=== PATIENT | male | born 1970 | race Caucasian/White ===

== ENCOUNTER 2023-11-24 07:32 | Emergency (ER) | payer BC, SELFPAY ==
--- NOTE | ~2023-11-24 | XR_ITS ---
EXAMINATION: XR ankle RT min 3V DATE: 11/24/2023 08:58 INDICATION: Right ankle swelling, pain, and erythema. TECHNIQUE: 4 views of right ankle were obtained. COMPARISON: None. FINDINGS: Bone alignment is normal. No fracture. There is mild midfoot osteoarthritis. There are enth esophytes at the posterior and plantar aspects of calcaneal tuberosity. Ankle soft tissue swelling is noted. IMPRESSION: 1. Mild midfoot osteoarthritis. Reviewed, dictated and finalized at location A.
--- NOTE | ~2023-11-24 | XR_ITS ---
EXAMINATION: XR foot RT min 3V DATE: 11/24/2023 08:58 INDICATION: Right foot swelling and pain. TECHNIQUE: 4 views of right foot were obtained. COMPARISON: None. FINDINGS: Bone alignment is normal. No fracture. There is mild osteoarthritis of first metatarsophala ngeal joint and many of the midfoot and interphalangeal joints. 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 IMPRESSION: 1. Mild polyarticular osteoarthritis. Reviewed, dictated and finalized at location A.
--- NOTE | ~2023-11-24 | XR_ITS ---
EXAMINATION: XR tibia fibula RT 2V DATE: 11/24/2023 08:58 INDICATION: Right lower leg pain and swelling. TECHNIQUE: 2 views of right tibia and fibula on 4 radiographs were obtained. COMPARISON: None. FINDINGS: Bone alignment is normal. No fracture. There is mild midfoot osteoarthritis. No knee joint effusion. IMPRESSION: 1. No fracture. Reviewed, dictated and finalized at location A. IMPRESSION: 1. No fracture.
--- NOTE | ~2023-11-24 | US_ITS ---
EXAMINATION: US venous doppler LE RT DATE: 11/24/2023 08:35 INDICATION: Right lower limb pain and swelling. TECHNIQUE: Grayscale ultrasound images without and with compression and Doppler ultrasound images of the right lower extremity veins were obtained. COMPARISON: None. FINDINGS: The visualized portions of right common femoral vein, profunda (deep) femoral vein, femoral vein, pop liteal vein, peroneal veins, posterior tibial veins, and greater saphenous vein outflow are patent. T here is 2.6 cm reflux in right popliteal vein. IMPRESSION: 1. No deep venous thrombosis. 2. Reflux in right popliteal vein. Reviewed, dictated and finalized at location A.
[2023-11-24 07:36] VITALS: BP 155/91; PULSE 98; RESP 20; TEMP 36.4; O2SAT 97
[2023-11-24 08:00] VITALS: PULSE 97; RESP 12; O2SAT 94
[2023-11-24 08:01] VITALS: BP 140/93; PULSE 92; RESP 18; O2SAT 92
--- NOTE | 2023-11-24 08:10 | ED.EXTPRO ---
HPI - Extremity Problem General Chief complaint: Extremity Problem,Nontraumatic Stated complaint: right calf pain, redness Time Seen by Provider: 11/24/23 07:42 History of Present Illness HPI Narrative: Patient is a 53-year-old male who presents emergency department this morning complaining of right lower extremity swelling, redness and pain. Patient states that he recently had to long flights, 1 approximately 4 hours and another 1 right after rate which was 3 hours and few days ago patient noticed that his right lower extremity was swollen and tender. Patient denies any injuries to his right lower extremity, denies any trauma or falls. Patient states that the swelling he initially noticed on Sunday and for the past 3 days he will try to wait it out to see if it would subside, however it did not. Denies any history of cardiovascular disease, and history of a blood clotting disorders and admits that he does not take any medications on a regular basis. Patient is currently denying any chest pain or shortness of breath, denies any additional symptoms or concerns. Related Data Allergies Allergy/AdvReac Type Severity Reaction Status Date / Time rubella virus live vaccine Allergy Unknown UNKNOWN Verified 11/24/23 07:34 Review of Systems Review of Systems: All systems are reviewed and are negative unless stated otherwise in the HPI. Exam Narrative: General: Alert, awake, afebrile, in no acute distress. Neck: Trachea midline, no JVD, no lymphadenopathy. Cardiovascular: Regular rate and rhythm, no murmurs, rubs or gallops, no peripheral edema. Respiratory: Clear to auscultation bilaterally, no tachypnea, no wheezing, no rhonchi, no rubs, no respiratory distress. Abdomen: Soft, nontender, nondistended, no rebound, no guarding, no peritoneal signs. Musculoskeletal: Swelling to a right foot, ankle, and dist are right leg from the mid calf and downward. Tenderness to palpation along the distal calf and around the right lateral malleoli, mild erythema noted around the lateral malleolus. Skin: No rashes or petechia, no signs of infection. Neurological: Alert and oriented to person, place, and time. Follows all commands. No focal deficits, speech is clear and fluent. Course Vital Signs Vital signs: Vital Signs Temperature 97.6 F 11/24/23 07:36 Pulse Rate 98 11/24/23 07:36 Respiratory Rate 20 11/24/23 07:36 Blood Pressure 155/91 H 11/24/23 07:36 Pulse Oximetry 97 11/24/23 07:36 Oxygen Delivery Room Air 11/24/23 07:36 Temperature 97.6 F 11/24/23 07:36 Pulse Rate 98 11/24/23 07:36 Respiratory Rate 20 11/24/23 07:36 Blood Pressure 155/91 H 11/24/23 07:36 Pulse Oximetry 97 11/24/23 07:36 Oxygen Delivery Room Air 11/24/23 07:36 MDM - Extremity (Nontraumatic) MDM Narrative Medical decision making narrative: The patient was evaluated by myself in the emergency department. History is obtained from patient who is an independent historian and physical exam was performed. External medical records were reviewed at this time. IV was established and pertinent tests were ordered. Laboratory results obtained revealing no acute process. Imaging studies obtained included right lower extremity venous duplex which was independently interpreted by me revealing no evidence of a DVT, patient does have reflux in his right popliteal artery, which is pending final radiology interpretation. X-rays of the right foot, ankle and tib-fib were obtained at this time and independently interpreted by me revealing no fractures or dislocations. Patient was informed that he likely has venous insufficiency and provided with a copy of his ultrasound report. Differential diagnosis considerations include DVT, edema, fractures/dislocations, and cellulitis. Comorbidities impacting this visit include recent flight. I have evaluated and discussed social determinants of health with the patient that could potentially impact
[2023-11-24 08:31] LABS: Basophils Absolute Auto 0.1 K/mm3 (0.0-0.1); Basophils Percent Auto 0.4 % (0.2-1.2); Eosinophils Absolute Auto 0.2 K/mm3 (0-0.3); Eosinophils Percent Auto 1.8 % (0-4.4); Hematocrit 56.8 % (42.0-52.0); Hemoglobin 18.8 g/dL (14.0-18.0); Immature Granulocyte Absolute 0.02 K/mm3 (0.00-0.031); Immature Granulocyte Percent A 0.2 % (0-0.5); Lymphocytes Absolute Auto 5.55 K/mm3 (0.9-3.2); Lymphocytes Percent Auto 48.6 % (18.3-44.2); Mean Corpuscular HGB Conc 33.1 g/dl (32-36); Mean Corpuscular Hemoglobin 31.6 pg (26-34); Mean Corpuscular Volume 95.5 fl (80-100); Mean Platelet Volume 9.8 fl (7.4-10.4); Monocytes Absolute Auto 0.6 K/mm3 (0.1-0.6); Monocytes Percent Auto 5.3 % (2.6-8.5); Neutrophils Percent Auto 43.7 % (45.5-73.1); Platelet Count Result 268 k/mm3 (150-375); Red Blood Count 5.95 M/mm3 (4.6-6.20); Red Cell Distribution Width 12.3 % (11.5-14.5); White Blood Count 11.4 K/mm3 (4.5-10.0)
[2023-11-24 08:46] LABS: Prothrombin Time 13.4 Seconds (11.1-14.7)
[2023-11-24 08:47] LABS: Partial Thromboplastin Time 30.9 Seconds (22.3-36.8)
[2023-11-24 08:56] LABS: Alanine Aminotransferase 55 U/L (6-50); Albumin Level 4.6 g/dL (3.5-5.1); Alkaline Phosphatase 87 U/L (38-126); Anion Gap 10 mmol/L (4-12); Aspartate Amino Transferase 33 U/L (17-59); Bilirubin,Total 0.8 mg/dL (0.2-1.3); Blood Urea Nitrogen 15 mg/dL (9-20); Calcium 9.4 mg/dL (8.4-10.2); Carbon Dioxide 25 mmol/L (22-30); Chloride 105 mmol/L (98-107); Estimated CRCL calculation 147 ml/min; Estimated Glomerular Filt Rate > 60; Glucose 122 mg/dL (65-110); Sodium 140 mmol/L (137-145)
[2023-11-24 09:23] VITALS: BP 114/60; PULSE 77; RESP 18; O2SAT 92
== END 2023-11-24 09:54 | disposition home or self-care (01) ==
PROVIDERS: Emergency Provider Emergency Medicine
DX: L03.115 Cellulitis of right lower limb (principal); R60.0 Localized edema; I87.2 Venous insufficiency (chronic) (peripheral)
CPT/HCPCS: 36415; 73590; 73610; 73630; 80053; 85025; 85610; 85730; 93971; 99284